=== PATIENT | male | born 1945 | race Asian ===

== ENCOUNTER → 2017-02-13 | Outpatient (CLI) | payer MEDICARE, BC | END | disposition home or self-care (01) | LOC: EDT 09:52 | DX: E11.9 Type 2 diabetes mellitus without complications (principal); Z71.3 Dietary counseling and surveillance ==

== ENCOUNTER 2017-04-08 22:16 | Emergency (ER) | payer MEDICARE, BC ==
--- NOTE | 2017-04-10 00:48 | ER ---
ADMIT: 04/08/2017 RM/LOC: ER [facility] MR#: [id number] [address] [id number] [address] [place] [address] Emergency Room Report SEX: M AGE: 71 : 1945 DATE: 04/08/2017 HISTORY OF PRESENT ILLNESS: The patient is a 71-year-old male, with past medical history of diabetes, hypertension, came to the ER with blunt head trauma. Allegedly, the patient tripped and hit his head to his boat. No loss of consciousness. No nausea, no vomiting. Incident happened 2 hours ago. The patient was ambulating and walking to the ER. The patient also denies of bilateral mild pain and tenderness in bilateral shoulders and arms, but can do range of motion bilaterally without difficulty. The patient denies any visual changes or neck pain. PHYSICAL EXAMINATION: GENERAL: The patient was in no distress. VITAL SIGNS: Stable. HEENT: Pupils are 3 mm, reactive to light. No hemotympanum. I checked the scalp, I did not see any signs of trauma or ecchymosis or swelling. No raccoon eyes and no Yan sign. No other signs of trauma in the head and neck. NECK: Trachea midline. No bruit on the neck. CHEST: Clear bilaterally. HEART: Normal heart sounds without any murmurs or gallops. ABDOMEN: Soft. PELVIC: Stable. EXTREMITIES: The patient had no midline tenderness or step-offs in the spine. The patient can do range of motion active and passive in all extremities. NEUROVASCULAR: Intact. The rest of the physical exam is noncontributory and normal. LABORATORY AND X-RAY DATA: CT of the brain was negative for any acute changes or bleeding. ASSESSMENT AND PLAN: The patient was reassured. The patient is stable, tolerated p.o., ambulated without difficulty and was discharged to home with return precautions. DIAGNOSES: 1. Blunt head trauma. 2. Ground level fall. Head trauma handout. To be followed up by the primary doctor as needed. Riki Main MD/ annabelle JOB #: [id number] CC: Riki Main MD, Attending Physician . [facility] Physician
== END 2017-04-08 23:40 | disposition home or self-care (01) ==
LOC: ER 22:16
DX: S09.90XA Unspecified injury of head, initial encounter (principal); I10 Essential (primary) hypertension; E11.9 Type 2 diabetes mellitus without complications; Z98.890 Other specified postprocedural states; Z79.84 Long term (current) use of oral hypoglycemic drugs; Z79.82 Long term (current) use of aspirin; Z79.899 Other long term (current) drug therapy; W01.198A Fall on same level from slipping, tripping and stumbling with subsequent striking against other object, initial encounter